=== PATIENT | male | born 1985 | race Caucasian/White ===

== ENCOUNTER 2023-04-11 10:51 | Emergency (ER) | payer SELFPAY ==
[2023-04-11] MEDS ORDERED: TYL2T PO (15:14)
== END 2023-04-11 12:27 | disposition left against medical advice (07) ==
LOC: ER 10:57
DX: Z53.21 Procedure and treatment not carried out due to patient leaving prior to being seen by health care provider (principal)

== ENCOUNTER 2023-04-11 12:53 | Emergency (ER) | payer MEDICAID ==
[~2023-04-11] VITALS: Ht 162.6 cm; Wt 73.9 kg
[2023-04-11] MEDS ORDERED: TYL2T PO (15:14)
[2023-04-11 15:33] VITALS: BP 126/89; TEMP 98.1; O2SAT 100
== END 2023-04-11 15:34 | disposition home or self-care (01) ==
LOC: ER 13:03
DX: S09.8XXA Other specified injuries of head, initial encounter (principal); F17.200 Nicotine dependence, unspecified, uncomplicated; V00.148A Other scooter (nonmotorized) accident, initial encounter; Y93.89 Activity, other specified; Y92.89 Other specified places as the place of occurrence of the external cause; Y99.8 Other external cause status
CPT/HCPCS: 70450-TC